=== PATIENT | male | born 1985 | race Caucasian/White ===

== ENCOUNTER 2020-01-11 18:59 | Inpatient (IN) | payer OTHER ==
[~2020-01-11] VITALS: Ht 180.3 cm; Wt 81.7 kg
[~2020-01-11 18:59] MED LIST: AMOX500 PO; Amoxicillin500 MG PO; Ativan1 MG PO; IBUP400 PO; IBUP800 PO; NORT10 PO; OXYACE5T PO; Percocet 5-3251 EACH PO; Prednisone20 MG PO
[2020-01-11 19:27] LABS: BASOPHILS ABSOLUTE AUTO 0.04 K/mm3 (0.00-0.23); BASOPHILS PERCENT AUTO 0 % (0-2); EOSINOPHILS ABSOLUTE AUTO 0.07 K/mm3 (0.00-0.68); EOSINOPHILS PERCENT AUTO 1 % (0-6); Hematocrit 45.6 % (37.0-53.0); Hemoglobin 15.8 g/dL (13.5-17.5); IMMATURE GRAN ABSOLUTE AUTO 0.05 K/mm3 (0.00-0.10); IMMATURE GRAN PERCENT AUTO 1 % (0-1); LYMPHOCYTES ABSOLUTE AUTO 2.18 K/mm3 (0.84-5.20); LYMPHOCYTES PERCENT AUTO 22 % (21-46); MONOCYTES ABSOLUTE AUTO 0.62 K/mm3 (0.16-1.47); MONOCYTES PERCENT AUTO 6 % (4-13); Mean Corpuscular HGB 31.2 pg (26.0-34.0); Mean Corpuscular HGB Conc 34.6 g/dL (31.5-36.5); Mean Corpuscular Volume 90 fL (80-100); Mean Platelet Volume 10.4 fL (9.1-12.4); NEUTROPHILS ABSOLUTE AUTO 6.88 K/mm3 (1.96-9.15); NEUTROPHILS PERCENT AUTO 70 % (41-73); Platelet Count 224 K/mm3 (150-400); RDW Standard Deviation 39.8 fL (35.1-46.3); Red Blood Cell Count 5.06 M/mm3 (4.30-5.90); White Blood Cell Count 9.84 K/mm3 (4.00-11.30)
[2020-01-11 19:43] LABS: International Normalized Ratio 0.96; Prothrombin Time Results 10.3 Sec (9.7-11.5)
[2020-01-11 19:52] LABS: Alanine Aminotransfer (ALT/SGP 65 U/L (12-78); Albumin, Blood 4.1 g/dL (3.4-5.0); Albumin/Globulin Ratio 1.3 (0.8-1.8); Alk Phos 89 U/L (50-136); Anion Gap 6 mmol/L (6-16); Aspartate Aminotrans (AST/SGOT 40 U/L (12-37); Beta HCG, Quantitative, Serum <1 mIU/mL (0-1); Bilirubin, Total 0.6 mg/dL (0.1-1.0); Blood Urea Nitrogen 14 mg/dL (8-24); Bun/Creatinine Ratio 11.8 (12.0-20.0); CO2, Blood 27 mmol/L (21-32); Calcium, Blood 8.4 mg/dL (8.5-10.1); Chloride, Blood 108 mmol/L (98-108); Creatinine, Blood 1.19 mg/dL (0.60-1.20); Ethanol (Alcohol), Blood, Med <3 mg/dL; Globulin, Blood 3.1 g/dL (2.2-4.0); Glomerular Filtration Rate >60 (60-); Glucose, Blood 101 mg/dL (70-99); Potassium, Blood 4.1 mmol/L (3.5-5.5); Sodium, Blood 141 mmol/L (136-145); Total Protein, Blood 7.2 g/dL (6.4-8.2)
--- NOTE | 2020-01-12 01:08 | NUR ---
ADMIT TO SURGICAL FLOOR PT ARRIVED TO UNIT FROM ED AT APPROX. 2315 ON 01/11/20. PT IS A/OX4 WITH VSS, BREATHS ARE SHALLOW AND EQUAL. ENCOURAGED/EDUCATED ON DEEP BREATHING, PT DEMONSTRATED ABILITY. NEURO CHECK WNL, ABLE TO MOVE EXTREMITIES AND WIGGLE FINGER/TOES. DENIES N/V OR CP. REPORTS PAIN AT TOLERABLE LEVEL AFTER 2X DOSE OF 0.25MG IV DILAUDID. 6
--- NOTE | 2020-01-12 16:19 | NUR ---
SPOKE WITH DR TAMAYO WHO TELLS ME HE HAS CONTACTED DR SAMMIE HAMILTON TO DO A CONSULT
--- NOTE | 2020-01-12 17:41 | NUR ---
SUMMARY PT REPORTS PAIN WELL CONTROLLED AT 12/13. HAS AMBULATED IN HALLS X2. ICE IN PLACE TO RIGHT SHOULDER THROUGHOUT SHIFT. NO CHANGE IN NUMBNESS TO ETREMITIES. FINGERS WARM AND PINK. CHADD PO FOOD AND FLUIDS WITHOUT NAUSEA.
--- NOTE | 2020-01-13 05:41 | NUR ---
SHIFT SUMMARY HAS RESTED WELL, GOOD INTAKE AND OUTPUT NOTED. PAIN MANAGED WITH PO PERCOCET X2 DOSES THIS SHIFT AND ICE PACKS. STATES THAT THEY ARE LOOKING FORWARD TO GOING HOME TODAY. DENIES FURTHER NEEDS OR WANTS AT THIS TIME. SAFETY MEASURES IN PLACE. WILL GIVE HAND OFF TO ONCOMING SHIFT USING SBAR DURING BEDSIDE REPORT.
--- NOTE | 2020-01-13 08:23 | NUR ---
CALLED DR TAMAYO- PT NO LONGER WANTS TO USE IV TORADOL AND WOULD LIKE PO MEDICATION FOR THE INFLAMATION. NEW ORDER FOR NAPROXEN 1 TAB PO Q12. WILL ADMINISTER ONCE VERIFIED BY PHARMACY, PT AWARE OF NEW ORDER.
[2020-01-13] MEDS ORDERED: DOCU100 PO (10:26)
[2020-01-13] MEDS ORDERED: ACET325 PO (10:26)
[2020-01-13] MEDS ORDERED: ROXICODONE5 MG PO (10:27)
[2020-01-13] MEDS ORDERED: Robaxin-750750 MG PO (10:27)
[2020-01-13] MEDS ORDERED: NAPR500 PO (10:27)
--- NOTE | 2020-01-13 11:39 | NUR ---
DISCHARGE NOTE- PT AND SPOUSE WERE GIVEN VERBAL AND WRITTEN DISCHARGE INSTRUCTIONS AND ACKNOWLEDGED UNDERSTANDING OF THEM. WRITTEN PERSCRIPTIONS PROVIDED TO THE PT AT THE TIME OF DISCHARGE. PAIN MEDICATION GIVEN AND IV DC'D PRIOR TO DISCHARGE. PT WAS ESCORTED OUT VIA WC BY THE RN TO THE PT ENTRANCE.
== END 2020-01-13 11:33 | disposition home or self-care (01) | DRG 563 ==
LOC: ER 18:59 → SURS 19:00
PROVIDERS: Emergency Medicine; ADMIT Surgery
DX: S42.001A Fracture of unspecified part of right clavicle, initial encounter for closed fracture (principal); S22.41XA Multiple fractures of ribs, right side, initial encounter for closed fracture; S42.101A Fracture of unspecified part of scapula, right shoulder, initial encounter for closed fracture; V80.010A Animal-rider injured by fall from or being thrown from horse in noncollision accident, initial encounter
CPT/HCPCS: 36415; 70450; 71045; 71260; 72125; 74177; 80053; 83690; 84702; 85025; 85610; 86850; 86900; 86901; 96361; 96374-59; 96375; 96376; 99285-25; G0480; J1170; J1885; J3010; J7030; Q9967

== ENCOUNTER 2023-12-20 10:02 | Emergency (ER) | payer OTHER ==
[~2023-12-20] VITALS: Ht 180.3 cm; Wt 79.4 kg
[~2023-12-20 10:02] MED LIST changes: +ACET325 PO; +DOCU100 PO; +NAPR500 PO; +ROXICODONE5 MG PO; +Robaxin-750750 MG PO
[2023-12-20 10:52] VITALS: BP 143/90
[2023-12-20 11:19] LABS: BASOPHILS ABSOLUTE AUTO 0.03 K/mm3 (0.00-0.23); BASOPHILS PERCENT AUTO 0 % (0-2); EOSINOPHILS ABSOLUTE AUTO 0.08 K/mm3 (0.00-0.68); EOSINOPHILS PERCENT AUTO 1 % (0-6); Hematocrit 48.9 % (37.0-53.0); Hemoglobin 17.4 g/dL (13.5-17.5); IMMATURE GRAN ABSOLUTE AUTO 0.03 K/mm3 (0.00-0.10); IMMATURE GRAN PERCENT AUTO 0 % (0-1); LYMPHOCYTES ABSOLUTE AUTO 2.55 K/mm3 (0.84-5.20); LYMPHOCYTES PERCENT AUTO 34 % (21-46); MONOCYTES ABSOLUTE AUTO 0.52 K/mm3 (0.16-1.47); MONOCYTES PERCENT AUTO 7 % (4-13); Mean Corpuscular HGB 31.4 pg (26.0-34.0); Mean Corpuscular HGB Conc 35.6 g/dL (31.5-36.5); Mean Corpuscular Volume 88 fL (80-100); Mean Platelet Volume 10.3 fL (9.1-12.4); NEUTROPHILS ABSOLUTE AUTO 4.35 K/mm3 (1.96-9.15); NEUTROPHILS PERCENT AUTO 58 % (41-73); Platelet Count 229 K/mm3 (150-400); RDW Standard Deviation 38.7 fL (35.1-46.3); Red Blood Cell Count 5.55 M/mm3 (4.30-5.90); White Blood Cell Count 7.56 K/mm3 (4.00-11.30)
[2023-12-20 11:50] LABS: Albumin/Globulin Ratio 1.1 (0.8-1.8); Bilirubin, Total 0.8 mg/dL (0.1-1.0); Bun/Creatinine Ratio 15.7 (12.0-20.0); Creatinine, Blood 0.95 mg/dL (0.60-1.20); Globulin, Blood 3.5 g/dL (2.2-4.0); Potassium, Blood 4.5 mmol/L (3.5-5.5); Total Protein, Blood 7.5 g/dL (6.4-8.2)
[2023-12-20] MEDS ORDERED: Droperidol 5 mg/2 ml Vial IV ONE (12:40)
[2023-12-20] MEDS ORDERED: Ketorolac Tromethamine 30mg Vial IV ONE (12:40)
[2023-12-20] MEDS ORDERED: LIDO700A20 TOP (13:40)
== END 2023-12-20 13:49 | disposition home or self-care (01) ==
LOC: ER 10:02
PROVIDERS: Student in an Organized Health Care Education/Training Program
DX: G24.3 Spasmodic torticollis (principal); G89.29 Other chronic pain; M54.6 Pain in thoracic spine; M77.8 Other enthesopathies, not elsewhere classified; Z88.1 Allergy status to other antibiotic agents; Z79.899 Other long term (current) drug therapy; Z87.81 Personal history of (healed) traumatic fracture
CPT/HCPCS: 73030; 80053; 85025; 96374; 96375; 99283-25; J1790; J1885